=== PATIENT | female | born 1950 | race Caucasian/White ===

== ENCOUNTER 2017-12-19 22:11 | Emergency (ER) | payer OTHER, MEDICARE, SELFPAY ==
[2017-12-19 22:13] VITALS: BP 154/58; PULSE 75; RESP 16; TEMP 36.8; O2SAT 98; BMI 33.8
[2017-12-19 22:20] VITALS: BP 154/58; RESP 16; O2SAT 99
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
[2017-12-19] MEDS: HYDROcodone Bitartrate/Apap 5/325 Tablet PO (22:29)
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
[2017-12-19 23:58] VITALS: RESP 16
== END 2017-12-19 23:59 | disposition home or self-care (01) ==
PROVIDERS: Emergency Provider Emergency Medicine; Family Provider Family Medicine; PCP Family Medicine
DX: S20.211A Contusion of right front wall of thorax, initial encounter (principal); S90.31XA Contusion of right foot, initial encounter; M54.2 Cervicalgia; V59.59XA Passenger in pick-up truck or van injured in collision with other motor vehicles in traffic accident, initial encounter; Y93.9 Activity, unspecified; Y92.9 Unspecified place or not applicable; Y99.9 Unspecified external cause status; I10 Essential (primary) hypertension; K21.9 Gastro-esophageal reflux disease without esophagitis; E66.9 Obesity, unspecified; Z79.899 Other long term (current) drug therapy; Z85.028 Personal history of other malignant neoplasm of stomach
CPT/HCPCS: 71045; 73630; 99284

== ENCOUNTER → 2018-05-19 08:57 | Outpatient (CLI) | payer MEDICARE, SELFPAY ==
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
== END ==
PROVIDERS: Family Provider Family Medicine; PCP Family Medicine; Visit Provider Internal Medicine Hematology & Oncology
DX: C16.8 Malignant neoplasm of overlapping sites of stomach (principal)
CPT/HCPCS: 78815; A9552

== ENCOUNTER → 2019-04-03 15:03 | Outpatient (CLI) | payer MEDICARE, SELFPAY ==
--- NOTE | 2019-04-03 15:10 | RAD_ITS ---
STUDY: X-RAY - FACIAL BONES REASON FOR STUDY: Female, 68 years old. bone lesion, bump over right side of face, near TMJ, Hx CA TECHNIQUE: 3 view(s) of the facial bones. COMPARISON: None. FINDINGS: Normal bilateral frontozygomatic and zygomatic-temporal arches. Normal bilateral medial and inferior orbital baker. Normal bilateral orbits. Normal visualized nasal bones. Normal anterior nasal spine. The remaining visualized osseous structures are normal. There is hyperostosis frontalis internus. No destructive bony process. Normal visualized paranasal sinuses. RAD/Facial Bones min 3 Views IMPRESSION: No lytic or sclerotic bone lesions identified. Consider additional evaluation with cross-sectional imaging and/or bone scan, if clinically appropriate. Electronically Signed: Mike Pizarro MD ([place]) at 17:09 EST , Service support ,
== END ==
PROVIDERS: Family Provider Family Medicine; PCP Family Medicine; Referring Provider Family Medicine; Visit Provider Family Medicine
DX: M89.9 Disorder of bone, unspecified (principal)
CPT/HCPCS: 70150

== ENCOUNTER → 2019-09-22 13:48 | Outpatient (CLI) | payer MEDICARE, SELFPAY ==
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
== END ==
PROVIDERS: PCP Family Medicine; Referring Provider Internal Medicine Hematology & Oncology; Visit Provider Internal Medicine Hematology & Oncology
DX: C16.8 Malignant neoplasm of overlapping sites of stomach (principal)
CPT/HCPCS: 78815; A9552

== ENCOUNTER 2019-09-28 11:00 | Outpatient (RCR) | payer MEDICARE, SELFPAY ==
--- NOTE | 2019-07-20 17:21 | HP.PTEVAL ---
Patient's Visit Information Leonardo GARCIA is a 69 year old F referred to Physical Therapy by Toribio Fulton DO with a diagnosis of Malignant neoplasm of overlapping sites of stomach. Date of Evaluation: 07/20/19 Physical Therapist: MANUEL Villalobos - Visit Plan Frequency: 2x /Week Duration: 6 Weeks Plan: +++NO ESTIM++++ ( due to cancer). 2X/ week for 6 weeks for R hip and knee strengthening, functional activities, gait training, stairs, with HEP - Subjective Subjective: 4 years in Nov she was dx with gastric cancer and PET scan showed a place in her leg. Chemo she was on got rid of cancer. Last fall saw the tumer in R leg and got MRI in and did surgery Feb 26 with a steel irvin and had radiation and started a different form of chemo in Apr. She did start PT and she does not think she was pushed very hard. She did not feel that she had the improvement that she thought she should have and an order was sent over. They did not take the tumor out when they did the surgery. She is doing mat exercises at home 4-5X/ week. She reports that wants to be challenged. She was on a walker for about 2-3 weeks after the surgery and took a misstep and hurt herself and went back on the walker. It was middle of May that she left the waker and went back to the cane. Stairs: up with the good and down with the bad with a railing. Sit to stand: she needs her arms to push self up. She has always had a problem sleeping. - Pain R hip pain Pain Intensity (Out of 10): 2 - Objective Gait: Walks with a straight cane with decrease stride length and decreased flexion of the R LE. She walks very guarded. Stairs: up the good and down with the bad with 2 hand rails. Attempted to ascend the step with her R leg and she got her leg up on the next step with 2 hand rails with increase pain and difficulty. LE MMT: R hip flex 4-/5, R knee ext 4-/5, R knee flexion 4-/5, R hip abd 3+/5, R hip ext 2-/5. Pt is able to walk on heels and toes. Pt has good hip and knee ROM.... - Goals Goal 1:: I HEP Goal Time Frame: 4-6 Weeks Goal 2:: Increase Hip strength by 1/2 muscle grade (at time of eval: LE MMT: R hip flex 4-/5, R knee ext 4-/5, R knee flexion 4-/5, R hip abd 3+/5, R hip ext 2-/5. Pt is able to walk on heels and toes). Goal Time Frame: 4-6 Weeks Goal 3:: Be able to go up and down stairs recip with 1 hand rail and a cane with SBA Goal Time Frame: 4-6 Weeks Goal 4:: Sit to stand with 1 hand on the chair rail. Goal Time Frame: 4-6 Weeks - Rehabilitation Potential Rehabilitation Potential: Good - Anticipated Interventions Patient/Client Instruction: Educate patient on: Plan of Care For the Purpose of:: To decrease pain, To increase ROM, To improve nutrient delivery to tissue, To increase oxygenation perfusion, To improve muscle performance and motor function, To improve ability to perform ADL's, To improve performance and independence with ADL's, To improve gait and locomotor functions Therapeutic Exercise to Include: Strength training, Balance training, Postural training, Gait and locomotor training, Active ROM For the Purpose of:: To decrease pain, To improve nutrient delivery to tissue, To increase oxygenation perfusion, To improve muscle performance and motor function, To improve ability to perform ADL's, To increase tolerance to activity/condition/position, To improve performance and independence with ADL's, To improve gait and locomotor functions Thank you for the opportunity to evaluate your patient. For Medicare and Medicare HMO plans, please review the plan of care and approve it. It will need to be FAXED BACK to us at [phone] for Medicare purposes. For Medicare only, by signing this I certify the plan of care. Please let me know if there are questions or concerns regarding this plan of care. Physician Signature: Date:
--- NOTE | 2019-09-28 11:46 | HP.PTDCSUM ---
It has been my pleasure to treat Leonardo GARCIA referred by Dr. Toribio Fulton DO, with the diagnosis of Malignant neoplasm of overlapping sites of stomach for a total of 17 visit(s). Discharge Date: 09/28/19 Please see the following information for a summary of their discharge status. Subjective: Pt reports that the tumor in her leg has grown and they are looking at a spot on her face that they can not tell what it is. She feels that the pain has limited her progress. She thinks that she wants to hold off on PT..... She is hoping to speak with the Dr this week. Pt feels that her leg is a lot stronger than when she stated. R hip pain Pain Intensity (Out of 10): 2 right knee Pain Intensity (Out of 10): 4 % Improvement: 70 Objective/Function: Pt was able to stand up with no hands from a chair today. Stairs: up and down leading with her L leg ascending and descending with her L leg with 2 hand rails. Functionally pt has improved with strength. Gait: improved R knee flexion with gait. Still weight shifts more to the L with gait. LEFS Goal 1:: I HEP Goal Progress: Goal Met Goal 2:: Increase Hip strength by 1/2 muscle grade (at time of eval: LE MMT: R hip flex 4-/5, R knee ext 4-/5, R knee flexion 4-/5, R hip abd 3+/5, R hip ext 2-/5. Pt is able to walk on heels and toes). Goal Progress: Goal Met Goal 3:: Be able to go up and down stairs recip with 1 hand rail and a cane with SBA Goal Progress: Not Progressing Goal 4:: Sit to stand with 1 hand on the chair rail. Goal Progress: Goal Met Plan: DC PT to HEp ideas such as ride Nu-step at , Kitchen sink exercises, side stepping etc as she waits the new poc with her tumor growing. Discharge Comments: DC PT to HEP If there are questions or concerns regarding this patient's physical therapy, please feel free to call me at [phone]. Thank you for the referral of this patient. Sincerely, Micki Bearden, MPT
== END 2019-09-28 19:00 | disposition home or self-care (01) ==
LOC: PT 11:00
PROVIDERS: PCP Family Medicine; Referring Provider Internal Medicine Hematology & Oncology; Visit Provider Internal Medicine Hematology & Oncology
DX: C16.8 Malignant neoplasm of overlapping sites of stomach (principal); M84.551D Pathological fracture in neoplastic disease, right femur, subsequent encounter for fracture with routine healing; R26.9 Unspecified abnormalities of gait and mobility
CPT/HCPCS: 97110; 97162; 97530

== ENCOUNTER → 2019-10-08 09:12 | Outpatient (CLI) | payer MEDICARE, SELFPAY ==
--- NOTE | 2019-10-08 | ASPOS_PTH ---
PATIENT: Leonardo GARCIA LOC: [facility] U#:[id number] AGE/SX: 74/F ROOM: RE10/08/[address]: Dr. Dawit Chiang MD : 1950 BED: DIS: SPEC #: [id number] RECD: 10/08/19 10:30 STATUS: JAZ TALAVERA #: [id number] CIRILO: 10/08/19 00:[address]: Dawit Chaing DEPT: CYTOLOGY RECD BY: Raya Bermeo ENTERED: 10/08/19 11:31 SP TYPE: ASP HERE OTHR DR: Dr. Almita Maria MD Tissues: Face, NOS Procedures: Surgery Specimen Level IV Cytology Other Fine Needle Asp on Site HEADER OPERATION: Fine needle aspiration right facial/parotid area PRE-OP DIAGNOSIS: Right facial mass TISSUE SUBMITTED: FNA right facial/parotid area DIAGNOSIS CYTOLOGY Fine needle aspiration, right facial mass (smears and cell block): Positive for malignant cells consistent with metastatic non-small cell carcinoma. See comment. AM:letha 10/12/19 COMMENT The findings are consistent with a metastatic gastric carcinoma. Clinical correlation is suggested. The specimen is evaluated at the time of FNA by Dr. Shafer. Immediate Evaluation = Positive for malignant cells consistent with non-small cell carcinoma. Immunohistochemistry ([id number]) supports the above diagnosis. Case has been reviewed in consultation with Dr. Borden who concurs with the above diagnosis. IDC:SJ CYTOLOGY STUDY Slides are reviewed. CYTOLOGY GROSS Received is 0.2 ml of reddish-feliciano fluid labeled with the patient's name, and designated right facial/parotid area. Two imprints are made from the submitted fluid and the rest is added to CytoLyt for cell block preparation. Submitted for cytology study. / AM:letha 10/08/19 TC:0 CPT: 36460, 86744, 60503, 33214
--- NOTE | 2019-10-08 | IMM_PTH ---
PATIENT: Leonardo GARCIA LOC: [facility] U#:[id number] AGE/SX: 74/F ROOM: RE10/08/[address]: Dr. Dawit Chiang MD : 1950 BED: DIS: SPEC #: [id number] RECD: 10/12/19 11:51 STATUS: JAZ REPratik #: [id number] CIRILO: 10/08/19 00:[address]: Dawit Chiang DEPT: IMMUNOHISTOCHEMISTRY RECD BY: Teresa Castro ENTERED: 10/12/19 11:53 SP TYPE: IMMUNO OTHR DR: Dr. Almita Maria MD Tissues: Face, NOS Procedures: Mammoglobin (initial) CK20 (add) CK5-6 (add) CK7 (add) CK8 (add) ANDREWS-2 (add) HER2 IVÁN (add) P53 (add) Pankeratin (add) GATA3 (add) CDX2 (add) S-100 (add) PHYSICIAN & [address] [address] SPECIMEN INFORMATION: Tissue Source: Right facial mass, fine needle aspiration Clinical Info: Right facial mass Specimen Number: [id number] CPT code: 12114, 02310 x11 METHODOLOGY: Deparaffinized sections of prefer/formalin-fixed tissue or PAP/DQ stained slides are incubated with monoclonal/polyclonal antibodies/oligonucleotide probes. Localization is made via biotin free immunoperoxidase method. Appropriate controls are performed and reacted as expected. Results on target cell population are indicated in the following table: RESULTS: ANTIBODY / CLONE RESULT Mammaglobin (31A5) negative GATA3 (L50-823) negative AE1-3 (AE1/AE3/PCK26) positive CK7 (OV-TL12/30) positive CK8 (21pzyrT72) positive CK20 (KS20.8) negative ANDREWS-2 (SP21) positive, focal CDX2 (GMW9245L) positive S-100 (4C4.9) negative CK5-6 (D5 & 1684) positive, focal P53 (DO-7) positive, 86% Her-2neu (CB11) positive These tests were developed and their performance characteristics determined by [facility]. They may not have been cleared or approved by the U.S. Food and Drug Administration. The FDA has determined that such clearance or approval is not necessary. The above immunohistochemical/dualISH markers are ordered and reviewed by the Pathologist. INTERPRETATION: Right facial mass, fine needle aspiration: Metastatic non-small cell carcinoma. See comment. AM:letha 10/13/19 Comment: Metastatic gastric carcinoma is favored. Case has been reviewed in consultation with Dr. Borden who concurs with the above diagnosis. IDC:SJ
== END ==
PROVIDERS: PCP Family Medicine; Referring Provider Otolaryngology; Visit Provider Otolaryngology
DX: R22.0 Localized swelling, mass and lump, head (principal)
CPT/HCPCS: 10021; 88161; 88305; 88341; 88342

== ENCOUNTER 2020-01-27 12:41 | Emergency (ER) | payer MEDICARE, SELFPAY ==
[2020-01-27] VITALS (8 sets, daily range): BP systolic 93–125; BP diastolic 51–92; PULSE 64–77; RESP 15–17; TEMP 36.6–38.2; O2SAT 94–98; BMI 31.5
--- NOTE | 2020-01-27 13:13 | EKG12_ITS ---
Test Reason : Blood Pressure : / mmHG Vent. Rate : 063 BPM Atrial Rate : 063 BPM P-R Int : 116 ms QRS Dur : 084 ms QT Int : 386 ms P-R-T Axes : 050 010 031 degrees QTc Int : 395 ms Normal sinus rhythm Nonspecific ST abnormality Abnormal ECG Confirmed by ELIANA SHEETS, ARTEM ([id number]), scientific publications editor DERRELL LEVI ([id number]) on 02/01/2020 12:32:44 PM Referred By: LOUIS Confirmed By:ARTEM MONROY MD
--- NOTE | 2020-01-27 13:25 | ED.DCSUM_ITS ---
- ER Visit Summary Date of Service: 01/27/20 Chief Complaint: Fever History of Present Illness: The patient is a 69 F history of gastric CA with metastases. Status post recent sulfa antibiotic for an abscess on external genitalia. Patient is currently under immunotherapy for gastric cancer. Today in the office he noticed fever of 102 with a dry cough. She denies any dysuria. She denies any nausea, vomiting or diarrhea. She denies any shortness of breath. Physical Examination: Older female no acute distress current temperature is 100.8. H EENT exam unremarkable moist with members. Neck nontender no lymphadenopathy. Lungs coarse breath sounds in the bases. Heart regular rhythm no murmur rate about 65. Abdomen soft nontender normal bowel sounds no peritoneal signs. Moving all 4 extremities. Neurovascular intact. She has chronic edema in her right leg from prior surgery that is not new or different. She has been worked up and has been negative for DVT in the past. Back nontender. She is a right chest wall MediPort it is nontender, nonswollen and no redness. Neurologically she is awake and alert with no focal motor deficits. Test Results: CBC shows a white count of 1.6 hemoglobin 9.9 absolute neutrophils of 900. Consistent with neutropenia. Her chemistries are unremarkable normal gap and creatinine. Liver enzymes unremarkable. UA normal. Lactic acid normal at 0.7 blood cultures pending. Covid has been done we will waiting on the result. Chest x-ray shows chronic changes there is an elevated left hemidiaphragm and atelectasis in the left lung base versus a mass. I discussed with the radiologist who feels this is all chronic and not an acute infiltrate nor pneumonia. Emergency Department Course and Treatment: Patient with gastric cancer and mets currently going undergoing immunotherapy presents with a fever. I discussed all test results with patient and her . I called and spoke to her oncologist Dr. Toribio Fulton. He wanted me to start the patient on IV Levaquin x1 dose here then Levaquin at home for 4 more days and he would follow- up tomorrow. Treatment Plan: 500 mg Levaquin daily. Follow-up with her oncologist tomorrow. Return if feeling worse. Cultures pending. Disposition: dc Impression: Acute neutropenic fever History of gastric cancer with mets on immunotherapy Rule out Covid This note was generated with DNAnexusation software. It may contain incorrect words, spelling, and punctuation that were not noted in review of the chart prior to signing ED Disposition - Plan for ED Patient: Referrals: Almita Maria MD [Primary Care Provider] -
--- NOTE | 2020-01-27 13:45 | RAD_ITS ---
STUDY: X-RAY CHEST REASON FOR EXAM: Female, 69 years old. Fever, chemo TECHNIQUE: Single AP portable view of the chest. COMPARISON: Comparison is made with prior study dated 12/19/2017. FINDINGS: A right-sided Port-A-Cath is seen with the tip at the junction of the superior vena cava and right atrium. EKG electrodes are seen. There is elevation of the left hemidiaphragm. Since prior examination, the previously seen nodular density has increased in size. This presently measures 5 cm x 3.4 cm. A central lucency is seen suggestive of possible cavitation. Blunting of the left costophrenic angle. Normal size heart. Normal mediastinum and del. Normal visualized pulmonary arteries. There is atherosclerotic calcification of the aortic arch with tortuosity. There are diffuse degenerative changes of the visualized thoracic spine. There is degenerative osteoarthritis of the bilateral shoulders. There is no demonstrated abnormality of the visualized soft tissue structures of the upper abdomen. RAD/Chest 1 View (Portable) IMPRESSION: Stable elevation of the left hemidiaphragm with progressive nodular mass at the left lung base. Electronically Signed: Rajat Moore, at 14:17 EDT , Service support ,
[2020-01-27] MEDS: 0.9% Normal Saline 1,000 ML 999 ML IV (14:24)
[2020-01-27 14:33] LABS: Absolute Lymphocyte Count 0.43 X10^3/uL (0.83-4.51); Absolute Neutrophil Count 0.9 X10^3/uL (2.0-7.7); Basophil# 0.01 X10^3/uL; Basophil% 0.6 % (0-1); Hematocrit 30.7 % (37-47); Hemoglobin 9.9 g/dL (12.0-15.0); Lymphocyte # 0.43 X10^3/ul (4.0); Lymphocyte % 27.7 % (19-41); Mean Corp Hgb Conc 32.2 g/dL (32-36); Mean Corpuscular Hgb 33.8 pg (27.0-32.0); Mean Corpuscular Volume 104.8 fL (81-99); Mean Platelet Vol. 9.6 fl (6.2-12.0); Monocyte# 0.21 X10^3/uL; Monocyte% 13.5 % (0-10); NRBC Flagged by Analyzer 0 % (0-5); Neutrophil # 0.89 X10^3/uL (2.7-7.7); Neutrophil % 57.6 % (47-70); POSITIVE DIFFERENTIAL YES; Platelet Count 134 K/mm3 (150-450); RBC Distribution Width CV 12.7 % (11.6-14.6); RBC Distribution Width SD 49.3 fl (35.1-43.9); Red Blood Count 2.93 M/mm3 (4.2-5.4); White Blood Count 1.6 K/mm3 (4.4-11.0)
[2020-01-27 14:41] LABS: International Normalized Ratio 1.4; Prothrombin Time (Protime)PT. 16.4 SECONDS (11.7-14.9)
[2020-01-27 14:42] LABS: Partial Thromboplast Time 74.8 Seconds (24.1-36.2)
[2020-01-27 14:43] LABS: Differential Indicated SCAN CRITERIA MET
[2020-01-27 14:51] LABS: ALB/GLOB Ratio 0.8 RATIO (0.9-2.4); AST(SGOT) 42 U/L (15-37); Alanine Aminotransfer ALT/SGPT 25 U/L (13-56); Albumin, Serum 2.6 g/dL (3.2-5.0); Alkaline Phosphatase 82 U/L (45-117); Anion Gap 5 (5-15); BUN 18 mg/dL (7-18); BUN/Creat Ratio 16.5 RATIO (10-20); Calcium,Total 8.1 mg/dL (8.5-10.1); Chloride 105 mmol/L (98-107); Creatinine, Serum 1.09 mg/dL (0.55-1.02); EST Glomerular Filtration Rate 53 mL/min (>60); Est Glom Filt Rate - Afr Amer 64 mL/min (>60); Estimated Creatinine Clearance 37.98 ml/min; Globulin 3.4 g/dL (2.2-4.2); Glucose 81 mg/dL (74-106); Lactic Acid 0.7 mmol/L (0.4-1.9); Sodium Level 134 mmol/L (136-145)
[2020-01-27 15:11] LABS: Bacteria 0 SEEN /hpf (None Seen); Mucous, Urine 0 SEEN /hpf (<or=2+); Red Blood Cells-Urine 0 SEEN /hpf (0-5); Squamous Epithelial Cells - UA 0 SEEN /hpf (5-10)
[2020-01-27] MEDS: oxyCODONE 5 MG Tablet PO (15:18)
[2020-01-27 15:29] LABS: Macrocytosis 1+; Platelet Estimate SLT DEC (ADEQ)
[2020-01-27 15:48] LABS: Color, Urine Yellow (Yellow); Glucose, Dipstick Normal (Normal); Ketone-Dipstick Negative (Negative); Leukocyte Esterase-Dipstick 25 /ul (Negative); Nitrite-Dipstick Negative (Negative); Occult Blood-Urine Negative /ul (Negative); Protein-Dipstick 15 mg/dl (Negative); Urine Bilirubin Dipstick Negative (Negative); Urine Clarity Clear (Clear); Urine Urobilinogen Normal (Normal)
[2020-01-27 15:57] LABS: White Blood Cells 0-5 SEEN /hpf (0-5)
--- NOTE | 2020-01-27 16:25 | ED.DEP ---
ED Disposition - Plan for ED Patient: Disposition: Home or Assisted Living Prescriptions: levoFLOXacin tablet [Levaquin tablet] 500 mg PO DAILY 4 Days #4 tab Prescription Printed Referrals: Toribio Fulton DO [STAFF PHYSICIAN] - 1 Day Additional Instructions: Levaquin 1 pill a day for 4 more days starting tomorrow. Call and follow-up with Dr. Toribio Fulton's office tomorrow. Return if feeling worse.
[2020-01-27] MEDS: levoFLOXacin IV 500 MG/100 ML BAG 100 MG IV (17:03)
--- NOTE | 2020-01-27 17:07 | ED.RN ---
PER DR. LUTHER SEPSIS SCREEN COMPLETED.
[2020-01-27] MEDS: 0.9% Saline Lock 10 ML Syringe IV (18:24)
[2020-01-28 14:20] LABS: Pathologist Review Reviewed
== END 2020-01-27 18:38 | disposition home or self-care (01) ==
PROVIDERS: Emergency Provider Emergency Medicine; PCP Family Medicine
DX: D70.9 Neutropenia, unspecified (principal); R50.81 Fever presenting with conditions classified elsewhere; C16.9 Malignant neoplasm of stomach, unspecified; C79.9 Secondary malignant neoplasm of unspecified site; Z79.899 Other long term (current) drug therapy; Z85.028 Personal history of other malignant neoplasm of stomach
CPT/HCPCS: 36591; 71045; 80053; 81001; 83605; 85025; 85610; 85730; 87040; 87086; 87088; 87635; 93005; 96361; 96365; 96375; 99284; J7030; J7050; A4216; U0002

== ENCOUNTER → 2020-03-29 16:23 | Outpatient (CLI) | payer MEDICARE, SELFPAY ==
[2020-01-27 12:41] VITALS: BMI 31.5
--- NOTE | 2020-03-29 15:00 | PET_ITS ---
EXAMINATION: FDG PET/CT INDICATIONS: A 69-year-old female with reported history of gastric carcinoma presenting for restaging examination. COMPARISON EXAMINATION: FDG PET study dated 05/19/2018 INDEX LESION SIZE SUV INTERPRETATION NEW: Left lower hemithorax pulmonary parenchyma-left lower lobe 9.1 x 13.4-cm (frame 184) 19.7 Fulfills quantitative criteria for viable neoplasm NEW: mediastinal structures, right supraclavicular region, bilateral thoracic perihilum 41.8-mm (largest) (frame 188) 22.8 (max) Fulfills quantitative criteria for viable neoplasm NEW: right hemithorax pleural interface, bilateral hemithorax pulmonary parenchyma 4.9 (max) Fulfills quantitative criteria for viable neoplasm NEW: abdominal retroperitoneum, bilateral hemipelvis and right inguinal regions 39.4-mm (largest) (frame 80) 6.5 (max) Fulfills quantitative criteria for viable neoplasm NEW: axial skeletal structures, periosseous soft tissue hypermetabolic foci 8.1-cm (largest) (frame 74) 9.8 (max) Fulfills quantitative criteria for viable neoplasm TECHNIQUE: Following the intravenous administration of 12.9 mCi of F-18 deoxyglucose via the left antecubital fossa, multiplanar image acquisitions of the neck, chest, abdomen and pelvis to level of mid thigh, obtained at one hour post radiopharmaceutical administration contemporaneously interpreted with the current CT of the neck, chest, abdomen and pelvis to level of mid thigh, dated 03/29/2020 via coregistration and previous FDG PET study dated 05/19/2018 reveal: SERUM GLUCOSE LEVEL: 88 mg/dl. HEIGHT: 62 inches. WEIGHT: 167 lbs. FINDINGS: 1. Newly identified increased glucose metabolism is manifest in the left mid-lower lung field-left lower lobe corresponding to consolidation-mass on review of CT of the chest dated 03/29/2020. The calculated maximal standard uptake value is 19.7. The maximal axial diameter of the corresponding metabolic, morphologic abnormality on review of CT of the chest dated 03/29/2020 is 9.1-cm (transverse) x 13.4-cm (AP). 2. Increased FDG distribution is visualized in the superior-subcarinal mediastinum and bilateral thoracic perihilum, right supraclavicular region rendering a calculated maximal standard uptake value of 22.8. The maximal axial diameter of the largest individual metabolic, morphologic abnormality on review of CT of the chest dated 03/29/2020 is 41.8-mm (AP). 3. Enhanced radiopharmaceutical uptake is multifocally apparent in the right hemithorax at the upper-lower pleural interface, bilateral lung zones-pulmonary parenchyma generating a calculated maximal standard uptake value of 4.9. 4. Multifocal increased glucose concentration is observed in the mid to lower abdominal retroperitoneum and bilateral hemipelvis, the right inguinal lymph node distributions. The calculated maximal standard uptake value is 6.5. The maximal axial diameter of the largest individual metabolic, morphologic abnormality on review of CT of the chest dated 03/29/2020 is 39.4-mm (AP). 5. Multifocal increased fluorine labeled GLUCOSE distribution is manifest in the subcutaneous-soft tissues, axial skeletal structures to include several thoracic and lumbar vertebrae, bilateral hemipelvis. The calculated maximal standard uptake value is 9.8. The maximal axial diameter of the largest soft tissue metabolic-morphologic abnormality on review of CT of the pelvis dated 03/29/2020 is 8.1-cm (transverse). 6. Normal physiologic distribution of the radiopharmaceutical is apparent in the hepatic (2.7) and splenic parenchyma, both renal units, bladder and visualized intestinal tract. Pertinent CT findings are as follows: CHEST: Shane-cath placement is noted. There is atherosclerotic calcification defined in the thoracic aorta without evidence of dilatation-aneurysm formation. A consolidative mass involving the left mid-lower lung demonstrates quantitatively significant increased FDG uptake. Parenchymal densities manifest in the right and left hemithorax demonstrate enhanced FDG uptake. ABDOMEN AND PELVIS: Left subcentimeter inguinal soft tissue densities are non-glucose avid. Extensive soft tissue swelling with apparent anasarca is defined in the visualized right lower extremity. Orthopedic hardware placement is noted in the right proximal femur. Calcifications are manifest in the bilateral lower hemipelvis in proximity to the adnexal regions without evidence of increased tracer uptake. SKELETAL: Degenerative changes are noted in the cervical, thoracic and lumbar spine. PET/PET/CT Tumor Base -Thigh Subs IMPRESSION: 1. ABNORMAL EXAMINATION INDICATIVE OF MALIGNANT VIABLE NEOPLASM. 2. Increased FDG concentration newly identified in the left lower lung-left lower lobe fulfills quantitative criteria for viable neoplasm. 3. Enhanced tracer uptake noted in the right supraclavicular region, mediastinal structures and bilateral thoracic perihilum fulfills quantitative criteria for viable metastatic disease. 4. Facilitated fluorine labeled glucose uptake identified in the right and left hemithorax pulmonary parenchyma, as well as right hemithorax at the pleural interface fulfill quantitative criteria for malignant transformation. 5. The abdominal retroperitoneal and retrocrural, bilateral hemipelvic and right inguinal hypermetabolic soft tissue densities fulfill quantitative criteria for viable metastatic involvement. 6. Skeletal and extraosseous soft tissue hypermetabolic foci fulfill quantitative criteria for viable neoplasia. (Sagar et al, Clinical Nuclear Medicine, 29:161, 2004). Electronic Signature Favio Carrasco D.O. Accurate Quantification of SUVs for this report are calculated using the exclusive i-nexus? Technology.??Exclusive [place].S. Patent Accuquan? Technology (U.S. Patent No. [phone] [phone]). Electronically Signed: Favio Carrasco DO at 10:14 EST Tel , Service support ,
== END ==
PROVIDERS: PCP Family Medicine; Referring Provider Internal Medicine Hematology & Oncology; Visit Provider Internal Medicine Hematology & Oncology
DX: C16.8 Malignant neoplasm of overlapping sites of stomach (principal)
CPT/HCPCS: 78815; A9552

== ENCOUNTER 2020-04-02 23:02 | Inpatient (IN) | payer MEDICARE, SELFPAY ==
[2020-01-27 12:41] VITALS: BMI 31.5
[2020-04-02 23:03] VITALS: BP 143/80; PULSE 75; RESP 26; TEMP 36.4; O2SAT 96; BMI 30.6
--- NOTE | 2020-04-02 23:22 | EKG12_ITS ---
Test Reason : SYNCOPE Blood Pressure : / mmHG Vent. Rate : 074 BPM Atrial Rate : 074 BPM P-R Int : 124 ms QRS Dur : 086 ms QT Int : 400 ms P-R-T Axes : -14 -02 107 degrees QTc Int : 444 ms Normal sinus rhythm Moderate voltage criteria for LVH, may be normal variant ST & T wave abnormality, consider lateral ischemia Abnormal ECG Confirmed by BRINA SHEETS, KEVIN ([id number]), school photograph editor DERRELL LEVI ([id number]) on 04/07/2020 10:13:46 AM Referred By: MAREN Confirmed By:FERNIE GONSALVES MD
--- NOTE | 2020-04-02 23:23 | CT_ITS ---
STUDY: CTA CHEST REASON FOR EXAM: Female, 69 years old patient with recent syncopal episode lasting 7-8 mins. Patient has chronic shortness of breath which has worsened today. Patient on chemotherapy for gastric and lung cancer. RADIATION DOSAGE (If Supplied By Facility): CTDIvol = ( 4.10 ) mGy, DLP = ( 166.90 ) mGycm TECHNIQUE: The examination was performed with the intravenous administration of 100 mL of Isovue-370. Post-processing of the angiographic images was performed, with multiplanar reformation and 3D reconstruction. Individualized dose optimization techniques were used for this CT. COMPARISON: PET/CT dated 03/29/2020. FINDINGS: Cardiac monitoring leads are present. Normal enhancement of the main pulmonary artery and right and left pulmonary arteries. There is limited enhancement of the left-sided peripheral pulmonary arteries. There is no demonstrated pulmonary embolism. There is prominence of the main pulmonary arteries without peripheral pulmonary vascular congestion. There is atherosclerotic calcification of the aortic arch with tortuosity. There is no demonstrated aortic dissection. Normal heart and pericardium. There is extensive mediastinal lymphadenopathy in the right paratracheal, pretracheal, precarinal, subcarinal, aorticopulmonary window and prevascular regions. There is probable left-sided and right-sided hilar lymphadenopathy. Left hilum is somewhat obscured by the extensive airspace disease and/or mass. The trachea and right sided mainstem bronchus and bronchioles appear to be patent. Although left main stem bronchus is patent, the bronchioles quickly taper and are occluded by neoplasm. There is mild elevation of left hemidiaphragm probably secondary to postobstructive atelectasis. There is dense left lower lobe airspace disease and/or mass similar to previous study. There are numerous pulmonary nodules scattered throughout the right lung of varying sizes. The largest nodule measures up to 1.9 cm in size. There is a small right-sided pleural effusion. Normal chest wall structures. Normal osseous structures. Normal visualized upper abdomen. CT/CTA Chest W/WO Contrast IMPRESSION: 1. No CTA demonstrated large or central pulmonary embolism or arterial dissection. 2. Postobstructive atelectasis with larger left lower lobe pulmonary mass and lingular mass consistent with known neoplasm. 3. Numerous right-sided pulmonary nodules probably representing additional metastasis. 4. Mediastinal and hilar lymphadenopathy. Electronically Signed: Sulema Godoy MD at 1:31 EST , Service support ,
--- NOTE | 2020-04-02 23:24 | ED.DCSUM_ITS ---
History of Present Illness Chief Complaint: Syncope Narrative: This patient is a 69-year-old female who presents with syncope. She was walking up the steps. She became dizzy and lightheaded. She remembers falling on the steps. Per EMS she had a syncopal episode and was unresponsive for about 7 to 8 minutes per bystander. She does not believe she injured anything. She denies any pain at all at this time. She denies recent medical illness such as fever cough vomiting or diarrhea. She states she had been in her baseline health until today. She has chronic shortness of breath but did have some worsening dyspnea on exertion today. She notes that she has some chronic right leg edema related to a prior fracture with ORIF. However she has had greatly increased swelling over the last couple of months. No extremity pain. No history of DVT or pulmonary embolism. She is not anticoagulated. She is undergoing chemotherapy and her last treatment was 2 days ago. Past Medical History - Allergies and Home Meds Allergies/Adverse Reactions: Allergies No Known Allergies Allergy (Verified 01/27/20 12:46) Primary Care Physician: Almita Maria MD [Primary Care Provider] - Past Medical History: - - Hypertension, metastatic gastric cancer Surgical History: - - Port Smoking Status: Never smoker Review of Systems All systems negative except as indicated General: Denies: Fever Eyes: Denies: Visual changes - bilaterally ENT: Denies: Bilateral ear pain Cardiovascular: Reports: - - Syncope. Denies: Chest pain Respiratory: Reports: Dyspnea. Denies: Cough Gastrointestinal: Denies: Abdominal pain, Nausea, Vomiting Musculoskeletal: Reports: Swelling. Denies: Extremity Pain Skin: Denies: Rash Neurological: Denies: Headache Hematologic: Denies: Easy bruising Allergy: Denies: Uticaria Physical Exam Vital Signs/Narrative: Vital Signs Temp Pulse Resp BP Pulse Ox 04/02/20 23:03 97.5 F L 75 26 H 143/80 H 96 Inital Vital Signs reviewed: Yes General: Well nourished Head: Normocephalic Eyes: EOMI ENT: Moist mucous membranes Neck: Supple Cardiovascular: Regular rate, Regular rhythm Respiratory: - - Tachypnea, decreased breath sounds at the left base, scattered wheezing Abdomen: Soft, Nontender, Nondistended Extremities: Nontender, - - Patient has trace edema of the left lower extremity, patient has 4+ edema of the right lower extremity, she has a palpable dorsalis pedis pulse, she has brisk capillary refill Skin: Normal color. Negative for: Diaphoresis Neurological: Alert Psychological: Normal affect Diagnostic/Tx/Re-eval Impressions Chest CTA 04/02/20 23:23 IMPRESSION: 1. No CTA demonstrated large or central pulmonary embolism or arterial dissection. 2. Postobstructive atelectasis with larger left lower lobe pulmonary mass and lingular mass consistent with known neoplasm. 3. Numerous right-sided pulmonary nodules probably representing additional metastasis. 4. Mediastinal and hilar lymphadenopathy. Electronically Signed: Sulema Godoy MD at 1:31 EST , Service support , 04/02/20 23:23 CTA Chest W/WO Contrast [CT] Stat 04/02/20 23:30 Mucosa - Nose SARS-CoV-2 Antigen (Rapid) - Final Laboratory Results 04/02/20 04/02/20 04/02/20 23:20 23:20 23:20 WBC 11.8 H RBC 4.21 Hgb 13.3 Hct 40.1 MCV 95.2 MCH 31.6 MCHC 33.2 RDW Std Deviation 51.4 H RDW Coeff of Farnaz 14.6 Plt Count 110 L MPV 9.8 Neut % (Auto) Not Reportable Absolute Neuts (auto) 11.1 H Absolute Lymphs (auto) 0.24 L Total Counted 100 Neutrophils % (Manual) 89 H Band Neutrophils % 5 Lymphocytes % (Manual) 2 L Monocytes % (Manual) 3 Myelocytes % 1 H Diff Path Review May foll Platelet Estimate ADEQUATE RBC Morphology NORM C+C Sodium 133 L Potassium 4.8 Chloride 100 Carbon Dioxide 22.0 Anion Gap 11 BUN 27 H Creatinine 1.01 Estim Creat Clear Calc 42.87 Est GFR (MDRD) Af Amer 70 Est GFR (MDRD) Non-Af 58 L BUN/Creatinine Ratio 26.7 H Glucose 164 H Lactic Acid Calcium 7.1 L Total Bilirubin 0.30 AST 52 H ALT 33 Alkaline Phosphatase 129 H Troponin I 0.051 H B-Natriuretic Peptide 226.3 H Total Protein 5.9 L Albumin 2.4 L Globulin 3.5 Albumin/Globulin Ratio 0.7 L 04/02/20 23:30 WBC RBC Hgb Hct MCV MCH MCHC RDW Std Deviation RDW Coeff of Farnaz Plt Count MPV Neut % (Auto) Absolute Neuts (auto) Absolute Lymphs (auto) Total Counted Neutrophils % (Manual) Band Neutrophils % Lymphocytes % (Manual) Monocytes % (Manual) Myelocytes % Diff Path Review Platelet Estimate RBC Morphology Sodium Potassium Chloride Carbon Dioxide Anion Gap BUN Creatinine Estim Creat Clear Calc Est GFR (MDRD) Af Amer Est GFR (MDRD) Non-Af BUN/Creatinine Ratio Glucose Lactic Acid 3.9 H* Calcium Total Bilirubin AST ALT Alkaline Phosphatase Troponin I B-Natriuretic Peptide Total Protein Albumin Globulin Albumin/Globulin Ratio - Medical Decision Making EKG shows sinus rhythm with T wave inversions in the lateral leads. Given the high clinical suspicion for pulmonary embolism CTA of the chest and laboratory studies were obtained. CTA of the chest shows no pulmonary embolism or arterial dissection. It does show postobstructive atelectasis with a left lower lung mass and multiple nodules on the right as well. Laboratory studies are notable for indeterminate troponin at 0.05. Lactic acid is elevated at 3.9. Patient is not febrile or tachycardic. Her white count is only 11.8. There are multiple etiologies for lactic acidosis had not believe this is related to sepsis but we will obtain urinalysis and cultures. Patient will be discussed with hospitalist and admitted for further evaluation and management. ED Disposition - Plan for ED Patient: Disposition: Acute Care Hospital [facility] Diagnosis: Syncope, Elevated troponin, Malignant neoplasm of stomach metastatic to lung Referrals: Almita Maria MD [Primary Care Provider] -
[2020-04-02 23:39] VITALS: PULSE 74; RESP 24
[2020-04-02] MEDS: Ipratropium/Albuterol Sulfate 3 ML AMPUL.NEB INHALATION (23:39)
--- NOTE | 2020-04-02 23:44 | ED.RN ---
RIGHT UPPER CHEST POWER PORT ACCESSED BY Kvng TITUS RN WITH GOOD BLOOD RETURN NOTED. LABS OBTAINED AT THIS TIME
[2020-04-02 23:51] LABS: ALB/GLOB Ratio 0.7 RATIO (0.9-2.4); AST(SGOT) 52 U/L (15-37); Alanine Aminotransfer ALT/SGPT 33 U/L (13-56); Albumin, Serum 2.4 g/dL (3.2-5.0); Alkaline Phosphatase 129 U/L (45-117); Anion Gap 11 (5-15); BUN 27 mg/dL (7-18); BUN/Creat Ratio 26.7 RATIO (10-20); Calcium,Total 7.1 mg/dL (8.5-10.1); Chloride 100 mmol/L (98-107); Creatinine, Serum 1.01 mg/dL (0.55-1.02); EST Glomerular Filtration Rate 58 mL/min (>60); Est Glom Filt Rate - Afr Amer 70 mL/min (>60); Estimated Creatinine Clearance 42.87 ml/min; Globulin 3.5 g/dL (2.2-4.2); Glucose 164 mg/dL (74-106); Potassium 4.8 mmol/L (3.5-5.1); Protein, Total 5.9 g/dL (6.4-8.2); Sodium Level 133 mmol/L (136-145)
[2020-04-02 23:59] LABS: Hematocrit 40.1 % (37-47); Hemoglobin 13.3 g/dL (12.0-15.0); Mean Corp Hgb Conc 33.2 g/dL (32-36); Mean Corpuscular Hgb 31.6 pg (27.0-32.0); Mean Corpuscular Volume 95.2 fL (81-99); Mean Platelet Vol. 9.8 fl (6.2-12.0); POSITIVE COUNT YES; POSITIVE DIFFERENTIAL YES; POSITIVE MORPHOLOGY YES; Platelet Count 110 K/mm3 (150-450); RBC Distribution Width CV 14.6 % (11.6-14.6); RBC Distribution Width SD 51.4 fl (35.1-43.9); Red Blood Count 4.21 M/mm3 (4.2-5.4); White Blood Count 11.8 K/mm3 (4.4-11.0)
[2020-04-03] VITALS (13 sets, daily range): BP systolic 100–133; BP diastolic 54–80; PULSE 57–92; RESP 16–28; TEMP 36.3–37.1; O2SAT 94–98; BMI 30.1; BMI 30.2
[2020-04-03 00:01] LABS: Differential Indicated MANUAL DIFF
[2020-04-03 00:10] LABS: Lactic Acid 3.9 mmol/L (0.4-1.9)
[2020-04-03 00:28] LABS: Absolute Lymphocyte Count 0.24 X10^3/uL (0.83-4.51); Lymphocyte 2 % (19-41); Lymphocyte # 0.24 X10^3/ul (4.0); Monocyte 3 % (0-10); Myelocyte 1 (0-0); Neutrophil # 11.09 X10^3/uL (2.7-7.7); Neutrophil-Band 5 % (0-5); Neutrophil-Segmented 89 % (47-70); Platelet Estimate ADEQUATE (ADEQ); Red Cell Morphology NORM C+C NORMAL (NORM C&C); Total Cells Counted 100 (MANUAL DIFF)
[2020-04-03 00:29] LABS: Absolute Neutrophil Count 11.1 X10^3/uL (2.0-7.7)
--- NOTE | 2020-04-03 00:58 | ED.RN ---
CONTACT: BERNY GARCIA, (SPOUSE)...CELL# [phone]...HOME# [phone]
[2020-04-03 01:08] LABS: BNP,B-Type NATRIURETIC PEPTIDE 226.3 pg/mL (0-100)
--- NOTE | 2020-04-03 02:11 | HP.PCM_ITS ---
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 The patient is a 69 year old F with past medical history as mentioned above presented to the emergency room because of syncope. Patient stated that she was walking upstairs, felt dizzy and lightheaded and she collapsed. She thinks that she lost her consciousness but she is not sure for how long. EMS reported that patient was unresponsive for about 7 to 8 minutes although the patient herself thinks that it was for short period of time. She denied any significant trauma or body injury. She denied cough or sputum production. She denied fever or chills. She reported chronic mild shortness of breath. She had history of metastatic gastric cancer and she is currently on immunotherapy, received her last session of immunotherapy 9 days ago and she follows up with Dr. Toribio Fulton. She had a history of hypertension and she has been on atenolol. She will history of osteoarthritis and she underwent right total knee replacement in 2013. In the emergency department, she was afebrile, blood pressure and heart rate are stable, she was tachypneic, pulse ox was 96% on room air. Routine blood work was remarkable for minimal leukocytosis, platelet count of 110,000. LFT was unremarkable. Lactic acid was 3.9. EKG revealed normal sinus rhythm without evidence of acute ischemic changes. Troponin was 0.51. BNP was 226. CTA chest done and showed no PE or dissection, revealed left lower lobe lung mass which is chronic secondary to metastasis and there are also numerous right- sided pulmonary nodules which seemed to be new. She is being admitted for syncopal episode, lactic acidosis, abnormal cardiac enzymes and new pulmonary metastasis. 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 (Chronic) Allergies No Known Allergies Allergy (Verified 01/27/20 12:46) Home Medications: Ambulatory Orders Medication Instructions Recorded Atenolol [Tenormin (beta rogelio)] 100 mg PO DAILY 02/02/14 Multivitamins,Therapeutic 1 tablet PO DAILY 02/02/14 [Multivitamin] Zolpidem Tartrate [Ambien] 5 mg PO QHS PRN PRN 02/02/14 Cholecalciferol (Vitamin D3) 1,000 unit PO DAILY 01/27/20 [Vitamin D3] Docusate Sodium [Colace] 200 mg PO DAILY 01/27/20 Oxycodone HCl 5 mg PO Q6H PRN PRN 01/27/20 Dexamethasone [Decadron] 4 mg PO BID 04/03/20 Levofloxacin 750 mg PO DAILY 04/03/20 Surgical History: total knee arthroplasty, - Psychiatric History: No pertinent psych hx FREEZER PERSON History: No pertinent FREEZER PERSON history Lives: Spouse/ Significant Other Smoking Status: Never smoker Alcohol: None Drugs: None - *Family History Maternal History Items: No pertinent history Paternal History Items: No pertinent history Review of Systems Constitutional: Denies: Anorexia, Chills, Fever, Weakness Eyes: Denies: Blurred vision, Double vision, Drainage, Redness HEENT: Denies: Difficulty Hearing, Ear Pain, Eye Pain, Hearing Changes, Nasal Congestion, Sore Throat Cardiovascular: Reports: Light Headedness, Syncope. Denies: Chest Pain, Chest Pressure, Edema, Heaviness, Palpitations Respiratory: Reports: Shortness of Breath. Denies: Cough, Pleuritic Pain, Sputum production, Wheezing Gastrointestinal: Denies: Abdominal Pain, Constipation, Diarrhea, Nausea, Vomiting Genitourinary: Denies: Dysuria, Frequency, Hematuria Musculoskeletal: Denies: Arm Pain, Back Pain, Foot Pain Skin: Denies: Dryness, Rash Neurological: Denies: Balance problems, Double vision, Change in Speech, Slurred speech, Confusion Psychiatric: Denies: Anxiety, Depression Endocrine: Denies: Change in Body Habitus, Polydipsia, Polyuria VTE Information - Inpt Only VTE Present on Admission: No VTE Mechan Device Prophylaxis: None VTE Pharm Prophylaxis ordered?: Yes Patient Problems: Active and Suspected Problems Lactic acidosis (Acute) Syncope (Acute) Elevated troponin (Acute) - Physical Exam Vitals/I&O's: Vital Signs Temp Pulse Resp BP Pulse Ox 97.5 F L 91 18 122/63 H 97 04/02/20 23:03 04/03/20 00:52 04/03/20 00:52 04/03/20 00:52 04/03/20 00:52 Oxygen Delivery Method Room Air Weight: 173 lb Body Mass Index (BMI) 30.6 General: Alert, Oriented x3, Cooperative, - - Anxious. HEENT: Atraumatic, PERRLA, EOMI, Normocephalic Oral: Moist Mucosa, No Gingival or Mucosal Lesions/ Ulcerations Neck: Supple, No JVD, Negative Carotid Bruits, Trachea Midline, Thyroid Normal Size and Texture Lungs: Clear to auscultation, Normal air movement, No rhonchi, No wheeze, No rales Cardiovascular: Regular rate, Regular Rhythm, Normal S1, Normal S2, PMI Normal Abdomen: Bowel Sounds Present, Soft, Non Tender, Non-Distended, No Hepato- splenomegaly, Obese Extremities: No clubbing, No cyanosis, - - No edema on the left leg. Right leg: Chronic diffuse edema extending up to the right thigh and around the right knee, it is chronic. Skin: No rashes, No breakdown Lymphatic: No Cervical, Supraclavicular, or Inguinal Adenopathy Neurological: Cranial nerves II-XII grossly intact, Motor Exam 5/5 strength throughout Psych/Mental Status: Anxious, Restless, Alert and oriented to time, place, person, mood and affect Microbiology Past 72 Hours 04/02/20 23:30 Mucosa - Nose SARS-CoV-2 Antigen (Rapid) - Final Laboratory Results 04/02/20 23:20: WBC 11.8 H, RBC 4.21, Hgb 13.3, Hct 40.1, MCV 95.2, MCH 31.6, MCHC 33.2, RDW Std Deviation 51.4 H, RDW Coeff of Farnaz 14.6, Plt Count 110 L, MPV 9.8, Neut % (Auto) Not Reportable, Absolute Neuts (auto) 11.1 H, Absolute Lymphs (auto) 0.24 L, Total Counted 100, Neutrophils % (Manual) 89 H, Band Neutrophils % 5, Lymphocytes % (Manual) 2 L, Monocytes % (Manual) 3, Myelocytes % 1 H, Diff Path Review August, Platelet Estimate ADEQUATE, RBC Morphology NORM C+C 04/02/20 23:20: Sodium 133 L, Potassium 4.8, Chloride 100, Carbon Dioxide 22.0, Anion Gap 11, BUN 27 H, Creatinine 1.01, Estim Creat Clear Calc 42.87, Est GFR (MDRD) Af Amer 70, Est GFR (MDRD) Non-Af 58 L, BUN/Creatinine Ratio 26.7 H, Glucose 164 H, Calcium 7.1 L, Total Bilirubin 0.30, AST 52 H, ALT 33, Alkaline Phosphatase 129 H, Troponin I 0.051 H, Total Protein 5.9 L, Albumin 2.4 L, Globulin 3.5, Albumin/Globulin Ratio 0.7 L 04/02/20 23:20: B-Natriuretic Peptide 226.3 H 04/02/20 23:30: Lactic Acid 3.9 H* Clinical Impression(s) from Imaging Studies Chest CTA 04/02/20 23:23 IMPRESSION: 1. No CTA demonstrated large or central pulmonary embolism or arterial dissection. 2. Postobstructive atelectasis with larger left lower lobe pulmonary mass and lingular mass consistent with known neoplasm. 3. Numerous right-sided pulmonary nodules probably representing additional metastasis. 4. Mediastinal and hilar lymphadenopathy. Electronically Signed: Sulema Godoy MD at 1:31 EST , Service support , Current Medications Sodium Chloride () 1,000 mls @ 999 mls/hr IV .Q1H1M ONE Stop: 04/03/20 02:35 Assessment/Plan All Active Problems Lactic acidosis (Acute) Syncope (Acute) Elevated troponin (Acute) This is a 69 years old female patient presented to the emergency room because of syncopal episode, found to have abnormal cardiac enzymes as well as elevated lactic acid and she is being admitted for evaluation and treatment. #1 syncopal episode: Unclear etiology. EKG revealed normal sinus rhythm without evidence of cardiac arrhythmias or acute ischemic changes. Troponin is borderline elevated. She has no focal deficit on physical exam. CTA chest showed no PE or dissection, other findings reviewed. Currently, vital signs are stable, afebrile. She does have minimal leukocytosis but she has been on steroids. Plan: Admit to PCU, cardiac monitoring, serial cardiac enzymes, 2D echocardiogram, CT scan brain without contrast to rule out brain metastasis, check CPK, IV fluids, Tylenol as needed, Zofran as needed, repeat CBC and BMP tomorrow morning, pro time and INR, PT OT evaluation and treatment. #2 lactic acidosis: Without obvious source of infection. CTA chest showed no acute infiltrate or consolidation. She does have minimal leukocytosis but she has been on steroids. She is afebrile. COVID-19 antigen came back negative. Plan: Blood culture, urinalysis, urine culture, IV fluids, repeat lactic acid in 3 hours. At this time, I will hold off starting her on IV antibiotics as there is no obvious source of infection. #3 abnormal cardiac enzymes: Also, BNP is slightly elevated. No evidence of acute CHF. EKG without acute segment changes. She had no cardiac history. Plan: Cardiac monitoring, serial cardiac enzymes, 2D echocardiogram. #4 new lung metastasis: CTA chest showed large left lower lobe lung mass which is chronic and also showed additional right-sided pulmonary nodules which are apparently new. Plan: Oncology consult. #5 history of metastatic gastric cancer: With mets to the lung. Currently, she is on immunotherapy. Plan as above. #6 hypertension: Blood pressure stable, continue atenolol. #7 DVT prophylaxis: Subcu Lovenox. This note was generated with [employer] dictation software. It may contain incorrect words, spelling, and punctuation that were not noted in checking the note before signing. Inpatient E&M: 06305 Init Hosp L3
[2020-04-03] MEDS: 0.9% Normal Saline 1,000 ML 999 ML IV (02:39)
--- NOTE | 2020-04-03 02:49 | ECHOD_ITS ---
Reason For Study: syncope/near syncope Procedure This was a 2D Doppler, Color Flow transthoracic echocardiogram. The study was technically difficult. Exam performed portable in patient room. Left Ventricle Normal LV size. The estimated ejection fraction is 65 %. Diastolic function is indeterminate. No regional wall motion abnormalities noted. Right Ventricle Normal RV size. Normal systolic function. Atria Normal left atrium. Normal right atrium. No doppler evidence for ASD. Mitral Valve There is no mitral valve stenosis. No mitral valve insufficiency. Tricuspid Valve There is no tricuspid stenosis. Trivial tricuspid valve insufficiency. Pulmonary artery systolic pressure is 45 mmHg. Aortic Valve Trisinus/trileaflet aortic valve. Mild diffuse aortic valve thickening. There is no aortic stenosis. No aortic valve insufficiency. Pulmonic Valve There is no pulmonic valvular stenosis. No pulmonic valve insufficiency. Great Vessels Normal aortic root. Pericardium/Pleural No pericardial effusion. MMode/2D Measurements & Calculations LVIDd: 3.3 cm IVSd: 0.97 cm Ao root diam: 2.7 cm LVIDs: 2.4 cm LVPWd: 0.92 cm RVDd: 3.2 cm FS: 27.0 % LAV(MOD-bp): 63.5 ml LA A4 area: 19.6 cm2 LA dimension(2D): 3.2 cm LAV(MOD-bp) Indexed: 35.5 ml/m2 LAV(MOD-sp2): 60.7 ml LAV(MOD-sp4): 60.9 ml RA A4 area: 11.0 cm2 Time Measurements MV dec time: 0.25 sec Doppler Measurements & Calculations MV E max nando: 62.9 cm/sec Lat Peak E' Nando: 4.6 cm/sec Med Peak E' Nando: 6.5 cm/sec MV A max nando: 113.1 cm/sec E/E' lat: 13.5 E/E' med: 9.6 MV E/A: 0.56 Ao V2 max: 154.7 cm/sec LV V1 max: 138.2 cm/sec PA V2 max: 131.2 cm/sec Ao max P.6 mmHg LV V1 max P.6 mmHg TR max nando: 312.9 cm/sec TR max P.7 mmHg Interpretation Summary The estimated ejection fraction is 65 %. Diastolic function is indeterminate. Ordering Physician: Heriberto Neville Referring Physician: Almita Maria Performed By: Sonia Caicedo RDCS, RVT
--- NOTE | 2020-04-03 02:49 | CT_ITS ---
STUDY: CT BRAIN WITHOUT CONTRAST REASON FOR EXAM: Female, 69 years old patient with syncopal episode lasting 7-8 seconds. RADIATION DOSAGE (If Supplied By Facility): CTDIvol = ( 44.99 ) mGy, DLP = ( 779.24 ) mGycm TECHNIQUE: Transaxial CT imaging of the brain was performed without administration of intravenous contrast material. Multiplanar reformations are submitted for interpretation. Individualized dose optimization techniques were used for this CT. COMPARISON: No relevant priors. FINDINGS: Normal soft tissue structures. Normal calvarium. There is mild cerebral atrophy with widening of the extra-axial spaces and ventricular dilatation. There are areas of decreased attenuation within the white matter tracts of the supratentorial brain, consistent with microvascular disease changes. There is small area of encephalomalacia within the left paramedian posterior frontal lobe that probably is secondary to an old infarct. There are small punctate calcifications of the basal ganglia which are seen in the aging brain as a normal variant. Normal brainstem. There is mild cerebellar atrophy. There is no intracranial hemorrhage. There is mild atherosclerotic calcification of the intracranial arteries. Normal visualized paranasal sinuses. CT/Brain/Head without Contrast IMPRESSION: 1. Chronic involutional changes of the brain. 2. No CT evidence of acute intracranial hemorrhage. Electronically Signed: Sulema Godoy MD at 5:09 EST , Service support ,
[2020-04-03 03:30] LABS: CPK Total, Creatine Kinase 97 U/L (26-192)
[2020-04-03 03:36] LABS: Reflex Lactate? Y
[2020-04-03] MEDS: 0.9% Normal Saline 1,000 ML 100 ML IV ×2 (03:45→15:02)
[2020-04-03 04:37] LABS: Lactic Acid 1.8 mmol/L (0.4-1.9)
[2020-04-03 06:29] LABS: Hematocrit 35.5 % (37-47); Hemoglobin 11.8 g/dL (12.0-15.0); Mean Corp Hgb Conc 33.2 g/dL (32-36); Mean Corpuscular Hgb 31.6 pg (27.0-32.0); Mean Corpuscular Volume 95.2 fL (81-99); Mean Platelet Vol. 9.4 fl (6.2-12.0); POSITIVE COUNT YES; POSITIVE DIFFERENTIAL YES; POSITIVE MORPHOLOGY YES; Platelet Count 79 K/mm3 (150-450); RBC Distribution Width CV 14.7 % (11.6-14.6); RBC Distribution Width SD 51.2 fl (35.1-43.9); Red Blood Count 3.73 M/mm3 (4.2-5.4); White Blood Count 9.5 K/mm3 (4.4-11.0)
[2020-04-03 06:33] LABS: Differential Indicated MANUAL DIFF
[2020-04-03 06:40] LABS: International Normalized Ratio 1.3; Prothrombin Time (Protime)PT. 15.3 SECONDS (11.7-14.9)
[2020-04-03 06:55] LABS: Lymphocyte 5 % (19-41); Metamyelocyte 1 % (0-1); Monocyte 2 % (0-10); Neutrophil-Segmented 92 % (47-70); Platelet Estimate ADEQUATE (ADEQ); Red Cell Morphology NORM C+C NORMAL (NORM C&C); Total Cells Counted 100 (MANUAL DIFF)
[2020-04-03 06:56] LABS: Absolute Lymphocyte Count 0.48 X10^3/uL (0.83-4.51); Absolute Neutrophil Count 8.7 X10^3/uL (2.0-7.7); Lymphocyte # 0.48 X10^3/ul (4.0); Neutrophil # 8.74 X10^3/uL (2.7-7.7)
[2020-04-03 07:26] LABS: Anion Gap 10 (5-15); BUN 22 mg/dL (7-18); BUN/Creat Ratio 34.5 RATIO (10-20); Calcium,Total 6.6 mg/dL (8.5-10.1); Chloride 103 mmol/L (98-107); Creatinine, Serum 0.64 mg/dL (0.55-1.02); EST Glomerular Filtration Rate 98 mL/min (>60); Est Glom Filt Rate - Afr Amer 118 mL/min (>60); Glucose 99 mg/dL (74-106); Potassium 3.9 mmol/L (3.5-5.1); Sodium Level 136 mmol/L (136-145)
[2020-04-03] MEDS: dexAMETHasone 4 MG Tablet PO ×2 (12:32→17:27)
[2020-04-03] MEDS: Atenolol 100 MG Tablet PO (12:32)
[2020-04-03] MEDS: levoFLOXacin 750 MG Tablet PO (12:33)
[2020-04-03] MEDS: Enoxaparin 60 MG/0.6 ML Syringe 30 MG SC (12:33)
[2020-04-03] MEDS: oxyCODONE 5 MG Tablet PO ×2 (12:33→19:08)
[2020-04-03 15:14] LABS: Bacteria 0 SEEN /hpf (None Seen); Mucous, Urine 0 SEEN /hpf (<or=2+); Red Blood Cells-Urine 0 SEEN /hpf (0-5)
[2020-04-03 15:23] LABS: Color, Urine Yellow (Yellow); Glucose, Dipstick Normal (Normal); Ketone-Dipstick 5 mg/dl (Negative); Leukocyte Esterase-Dipstick 500 /ul (Negative); Nitrite-Dipstick Negative (Negative); Occult Blood-Urine 10 /ul (Negative); Protein-Dipstick 15 mg/dl (Negative); Urine Bilirubin Dipstick Negative (Negative); Urine Clarity Clear (Clear); Urine Urobilinogen Normal (Normal)
--- NOTE | 2020-04-03 15:29 | PCM.HOSP.N ---
Hospitalist Note Patient was seen and examined today, her was in her room today at the time my examination, he stated that she had a syncopal episode after standing up and trying to walk a few minutes later to the stairs, he stated that she was unconscious for about 6 minutes. He did not see any noticeable seizure activity. I discussed this case by phone with her oncologist (Dr. Fulton) who recommended obtaining a MRI of the brain to rule out metastatic spread. Patient will have an echocardiogram tomorrow to rule out significant valvular heart disease, I told her and her that we may never find a reason for why she had a syncopal episode. Patient currently has stage IV gastric cancer.
[2020-04-03 15:47] LABS: Squamous Epithelial Cells - UA 0-5 SEEN /hpf (5-10); White Blood Cells 10-25 SEEN /hpf (0-5)
[2020-04-04] VITALS (7 sets, daily range): BP systolic 107–160; BP diastolic 58–72; PULSE 53–84; RESP 16–19; TEMP 36.1–36.7; O2SAT 92–96
[2020-04-04] MEDS: 0.9% Normal Saline 1,000 ML 100 ML IV (00:49)
[2020-04-04] MEDS: oxyCODONE 5 MG Tablet PO ×2 (01:59→08:23)
--- NOTE | 2020-04-04 05:55 | MRI_ITS ---
STUDY: MRI BRAIN WITH AND WITHOUT CONTRAST REASON FOR EXAM: Female, 69 years old. H/O CA, ? BRAIN METS, SYNCOPAL EPISODES TECHNIQUE: Standardized multiplanar fat and water weighted pulse sequences were obtained. IV 15 CC DOTAREM was administered for the contrast portion of the examination. COMPARISON: None. 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 There is vasogenic edema in the adjacent part of the left frontal lobe. Normal size of the ventricles for the patient''s age. Normal bilateral basal ganglia. Normal thalami. There is no extra-axial fluid accumulation. Normal flow voids within the major intracranial circulation suggesting patency by spin echo criteria. Normal venous enhancement. Normal sella turcica, pituitary gland, infundibular stalk, optic chiasm and hypothalamus. Normal tectal plate and pineal gland. Normal midbrain, italo and medulla. Normal cerebellum. Normal basal cisterns. Normal bilateral temporal bones. Normal bilateral internal auditory canals. No demonstrated orbital abnormality, within the constraints of a routine brain study. Normal visualized paranasal sinuses. Normal calvarium and skull base. Normal visualized soft tissue structures. Normal visualized upper cervical spine. 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 Electronically Signed: Vadim Martinez, at 13:35 EST Tel , Service support ,
[2020-04-04] MEDS: levoFLOXacin 750 MG Tablet PO (06:23)
[2020-04-04] MEDS: dexAMETHasone 4 MG Tablet PO (08:22)
[2020-04-04] MEDS: Enoxaparin 60 MG/0.6 ML Syringe 30 MG SC (08:23)
[2020-04-04] MEDS: Atenolol 100 MG Tablet PO (08:23)
--- NOTE | 2020-04-04 11:01 | DCINST_ITS ---
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 (Chronic) You will use the following diet at home:: No restrictions Your food should be the consistency of: Regular Your liquids should be the consistency of: Regular/Thin Discharge Activity: Return to Normal Activity Allergies/Adverse Reactions: Allergies No Known Allergies Allergy (Verified 01/27/20 12:46) Medications to take at Discharge Atenolol [Tenormin (beta rogelio)] 100 mg PO DAILY 02/02/14 Multivitamins,Therapeutic [Multivitamin] 1 tablet PO DAILY 02/02/14 Zolpidem Tartrate [Ambien] 5 mg PO QHS PRN PRN 02/02/14 Cholecalciferol (Vitamin D3) [Vitamin D3] 1,000 unit PO DAILY 01/27/20 Docusate Sodium [Colace] 200 mg PO DAILY 01/27/20 Oxycodone HCl 5 mg PO Q6H PRN PRN 01/27/20 Dexamethasone [Decadron] 4 mg PO BID 04/03/20 Primary Care Physician: Almita Maria MD [Primary Care Provider] - Please follow up with your Primary Care Physician in: 1-2 weeks Test Results: Test results from this visit will be discussed in further detail at your follow- up appointment, if applicable. Please Follow Up With: Oncology When: As previously directed
[2020-04-04 12:13] LABS: Pathologist Review Reviewed
--- NOTE | 2020-04-04 12:21 | NURSING ---
Addendum entered and electronically signed by Terri Recio 04/04/20 12:51: S/w Valorie from [facility] and [facility] can accept patient for start of care either Saturday or Saturday. RICK Aguilar Original Note: RN CM Assessment Introduced role of RN KADIE to patient and her Lex Hernandez at bedside.? Patient is alert, oriented and able?to participate in RN CM Assessment. ?Care providers, pharmacy, and demographics verified. Admit Dx: Syncope, Abnl cardiac enzymes, lactic acidosis Re-Admit: No Barriers/Issues: Patient was evaluated by PT/OT and both recommending additional therapy, PT at shelter facility level. Discussed this with both patient and her and both wish for patient to go home with [facility]. Patient provided in network list of [facility] and preference is [facility]. 1220- called Shelli at [facility] and left a VM and to return call to this keno writer. Patient currently wearing oxygen- was not prior, nursing to oxygen test patient on RA to see if home oxygen is needed, if needed preference is [facility]. is present with patient all the time except when grocery shopping. Advised that patient not be left alone while improving on strength and healing. PCP: Almita Maria Specialists: OncSulma Fulton Preferred Pharmacy: [facility] Insurance: [facility] Rx Benefit:?Yes ?LNOK: Lex Hernandez LW/HPOA: [facility] has completed and will fax to unit to place copy on file. HPOA- Lex Hernandez. Living Arrangements:? Lives with in a 2SH, Bedroom on [facility]. 1 step to enter home through garage with hand rails. plans on having a stair lift installed. Plan for patient to stay on first floor until she gets better. having additional RTS installed and grab bars near toilet. ADL?s: Ambulates with cane and assist. Uses 2WW and plans to use the walker more. assists with dressing and meals, otherwise patient is independent with dressing/medications. Transportation: [place] and will upon DC DME: two 2WW, single point cane, Pulse ox, RTS. HHC: None. Preference [facility]. SNF: None Goal: Home with HHC. Denies any additional needs, issues or concerns. Nurse to RA oxygen test- preference [employer] if oxygen is needed. DC PLAN: Home with HHC- PT/OT, possible home O2. Edmond Recio RNCM
[2020-04-04] MEDS: 0.9% Saline Lock 10 ML Syringe IV (12:22)
[2020-04-04 12:26] LABS: Pathologist Review Reviewed
[2020-04-04] MEDS: Albuterol 2.5 MG/3 ML VIAL.NEB. INHALATION (13:06)
--- NOTE | 2020-04-04 14:17 | PCM.DC ---
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 (Chronic) You will use the following diet at home:: No restrictions Your food should be the consistency of: Regular Your liquids should be the consistency of: Regular/Thin Discharge Activity: Return to Normal Activity, May Not Drive Weight Bearing Status: Full weight bearing Allergies/Adverse Reactions: Allergies No Known Allergies Allergy (Verified 01/27/20 12:46) Medications to take at Discharge Atenolol [Tenormin (beta rogelio)] 100 mg PO DAILY 02/02/14 Multivitamins,Therapeutic [Multivitamin] 1 tablet PO DAILY 02/02/14 Zolpidem Tartrate [Ambien] 5 mg PO QHS PRN PRN 02/02/14 Cholecalciferol (Vitamin D3) [Vitamin D3] 1,000 unit PO DAILY 01/27/20 Docusate Sodium [Colace] 200 mg PO DAILY 01/27/20 Oxycodone HCl 5 mg PO Q6H PRN PRN 01/27/20 Dexamethasone [Decadron] 4 mg PO TID #90 tab 04/04/20 Famotidine [Pepcid] 40 mg PO DAILY #30 tab 04/04/20 Levetiracetam [Keppra] 500 mg PO BID #60 tab 04/04/20 levoFLOXacin tablet [Levaquin tablet] 750 mg PO DAILY@0600 tablet 04/04/20 The following prescriptions were given: Dexamethasone [Decadron] 4 mg PO TID #90 tab Transmission Status: Pending to [facility] Levetiracetam [Keppra] 500 mg PO BID #60 tab Transmission Status: Pending to [facility] Famotidine [Pepcid] 40 mg PO DAILY #30 tab Transmission Status: Pending to [facility] Primary Care Physician: Almita Maria MD [Primary Care Provider] - Please follow up with your Primary Care Physician in: 1-2 weeks Test Results: Test results from this visit will be discussed in further detail at your follow-up appointment, if applicable. Please Follow Up With: Oncology When: call Dr. Coelho to arrange for treatment (radiotherapy)
--- NOTE | 2020-04-04 14:53 | PCM.DC.SUM ---
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 CT/CTA Chest W/WO Contrast IMPRESSION: 1. No CTA demonstrated large or central pulmonary embolism or arterial dissection. 2. Postobstructive atelectasis with larger left lower lobe pulmonary mass and lingular mass consistent with known neoplasm. 3. Numerous right-sided pulmonary nodules probably representing additional metastasis. 4. Mediastinal and hilar lymphadenopathy. CT/Brain/Head without Contrast IMPRESSION: 1. Chronic involutional changes of the brain. 2. No CT evidence of acute intracranial hemorrhage. 2D TTE: Interpretation Summary The estimated ejection fraction is 65 %. Diastolic function is indeterminate. Operations: None Procedures: 2-D Echocardiogram Summary of Care Provided: Hospital Course: The patient is a 69 year old F with pmhx notable for stage 4 gastric cancer who presented to the ER with syncope. She felt dizzy while walking up a flight of stairs and then collapsed for an unclear amount of time possibly 7-8 mins per EMS. No explicit seizure activity was noted. She had been undergoing immunotherapy with Dr. Fulton, most recent tx about 9 days prior. She was simon to the ER and found to have indeterminate trop, lactic acidsosis, negative UA, mild leukocytosis. CTA chest was negative for acute change. CT brain showed chronic changes. She was admitted to the PCU on tele. She had no remarkable events on tele. She had an MRI brain showing a meningeal mass suspected metastatic disease. She was placed on keppra. Dr. Fulton was contacted to arrange for follow up care -- planning for Radiotherapy with Dr. Coelho. Decadron increased to 4 tid. Echo was obtained - unremarkable. She was discharged home in stable condition with outpatient follow up with Dr. Fulton as directed and with PCP in 1-2 weeks. This patient was seen by Raúl Torres PA-C under the supervision of Dr. Del Cid. [] Patient Problems: Active and Suspected Problems Lactic acidosis (Acute) Syncope (Acute) Elevated troponin (Acute) - Physical Exam Vitals/I&O's: Vital Signs Temp Pulse Resp BP Pulse Ox 97.6 F L 68 16 107/58 L 96 04/04/20 08:26 04/04/20 13:06 04/04/20 13:06 04/04/20 08:26 04/04/20 13:58 Oxygen Flow Rate (L/min) [ 0 AMBULATING on Room Air] Oxygen Flow Rate (L/min) [At 0 REST on Room Air] Oxygen Flow Rate (L/min) 3 Oxygen Delivery Method Room Air Weight: 164 lb 14.492 oz Body Mass Index (BMI) 30.1 Intake and Output for Last 24 Hours 04/02/20 04/03/20 04/04/20 23:59 23:59 23:59 Intake Total 2840 / 3060 2488.33 / 2488.33 Output Total 250 / 250 250 / 250 Balance 2590 / 2810 2238.33 / 2238.33 General: Alert, Oriented x3, Cooperative HEENT: Atraumatic, PERRLA, EOMI, Normocephalic Neck: Supple, No JVD, Negative Carotid Bruits Lungs: Clear to auscultation, Normal air movement Cardiovascular: Regular rate, No murmurs Abdomen: Bowel Sounds Present, Soft, Non Tender Extremities: No edema, Capillary Refill Less than 3 Seconds Skin: No rashes, No breakdown Musculoskeletal: No Tenderness to Palpation of Joints or Extremities Neurological: Cranial nerves II-XII grossly intact Psych/Mental Status: Normal Affect, Appropriate, Alert and oriented to time, place, person, mood and affect Microbiology Past 72 Hours 04/03/20 14:57 Urine, Clean Catch Urine Culture - Preliminary Presumptive E. coli 04/02/20 23:30 Mucosa - Nose SARS-CoV-2 Antigen (Rapid) - Final Laboratory Results 12/26/20 23:20: Diff Path Review Reviewed 04/03/20 06:15: Diff Path Review Reviewed 04/03/20 14:57: Urine Color Yellow, Urine Clarity Clear, Urine pH 5.0, Ur Specific [place] 1.020, Urine Protein 15 H, Urine Glucose (UA) Normal, Urine Ketones 5 H, Urine Occult Blood 10 H, Urine Nitrite Negative, Urine Bilirubin Negative, Urine Urobilinogen Normal, Ur Leukocyte Esterase 500 H, Urine RBC 0 SEEN, Urine WBC 10-25 SEEN, Ur Squamous Epith Cells 0-5 SEEN, Urine Bacteria 0 SEEN, Urine Mucus 0 SEEN Current Medications Acetaminophen (Acetaminophen 325 Mg Tablet) 650 mg PO Q6H PRN PRN PRN Reason: Pain Score 1-10/Temp > 100.7 F Atenolol (Atenolol 100 Mg Tablet) 100 mg PO DAILY [facility] Last Admin: 04/04/20 08:23 Dose: 100 mg Documented by: Dexamethasone (Dexamethasone 4 Mg Tablet) 4 mg PO BIDCM [facility] Last Admin: 04/04/20 08:22 Dose: 4 mg Documented by: Enoxaparin Sodium (Enoxaparin 60 Mg/0.6 Ml Syringe) 30 mg SC DAILY [facility] Last Admin: 04/04/20 08:23 Dose: 30 mg Documented by: Heparin Sodium (Beef Lung) (Heparin Pf Lock 10 Units/Ml 50 Units/5 Ml Syringe) 50 units IV UD PRN PRN Reason: Port-a-Cath (VAD)Heparin Flush Last Admin: 04/04/20 12:22 Dose: 50 units Documented by: Sodium Chloride () 1,000 mls @ 100 mls/hr IV .Q10H [facility] Last Infusion: 04/04/20 11:05 Dose: Infused Documented by: Sodium Chloride () 250 mls @ 15 mls/hr IV .[id number] PRN PRN Reason: Saline Flush Sodium Chloride () 250 mls @ 15 mls/hr IV .[id number] PRN PRN Reason: Additional IVPB Infusion Levofloxacin (Levofloxacin 750 Mg Tablet) 750 mg PO DAILY@0600 [facility] Last Admin: 04/04/20 06:23 Dose: 750 mg Documented by: Nutritional Formula (Lactose Free) (Ensure Enlive 120 Ml Liquid) 120 ml PO 4X/DAY [facility] Last Admin: 04/04/20 14:02 Dose: Not Given Documented by: Ondansetron HCl (Ondansetron 4 Mg/2 Ml Vial) 4 mg IV Q8H PRN PRN PRN Reason: NAUSEA/VOMITING Oxycodone HCl (Oxycodone 5 Mg Tablet) 5 mg PO Q6H PRN PRN PRN Reason: Pain Score 1-10 Last Admin: 04/04/20 08:23 Dose: 5 mg Documented by: Senna/Docusate Sodium (Senna/Docusate Sodium 1 Tablet) 2 tablet PO BID PRN PRN PRN Reason: Constipation Sodium Chloride (0.9% Saline Lock 10 Ml Syringe) 10 - 40 ml IV UD PRN PRN Reason: Port-a-Cath (VAD) Flush Last Admin: 04/04/20 12:22 Dose: 10 ml Documented by: Sodium Chloride (0.9 % Nacl (Sterile) Posiflush 10 Ml) 10 - 40 ml IV UD PRN PRN Reason: Port access or dressing change Zolpidem Tartrate (Zolpidem Tartrate 5 Mg Tablet) 5 mg PO QHS PRN PRN PRN Reason: INSOMNIA Discharge Diet: No Restrictions Discharge Activity: Return to Normal Activity, May Not Drive Weight Bearing Status: Full weight bearing Home Medications: Medications to take at Discharge Atenolol [Tenormin (beta rogelio)] 100 mg PO DAILY 02/02/14 Multivitamins,Therapeutic [Multivitamin] 1 tablet PO DAILY 02/02/14 Zolpidem Tartrate [Ambien] 5 mg PO QHS PRN PRN 02/02/14 Cholecalciferol (Vitamin D3) [Vitamin D3] 1,000 unit PO DAILY 01/27/20 Docusate Sodium [Colace] 200 mg PO DAILY 01/27/20 Oxycodone HCl 5 mg PO Q6H PRN PRN 01/27/20 Dexamethasone [Decadron] 4 mg PO TID #90 tab 04/04/20 Famotidine [Pepcid] 40 mg PO DAILY #30 tab 04/04/20 Levetiracetam [Keppra] 500 mg PO BID #60 tab 04/04/20 levoFLOXacin tablet [Levaquin tablet] 750 mg PO DAILY@0600 tab 04/04/20 Following Prescriptions Were Given to Patient: Dexamethasone [Decadron] 4 mg PO TID #90 tab Transmission Status: Received by KAYLEE LEONARD RD Levetiracetam [Keppra] 500 mg PO BID #60 tab Transmission Status: Received by KAYLEE LEONARD RD Famotidine [Pepcid] 40 mg PO DAILY #30 tab Transmission Status: Received by KAYLEE LEIVA HORACIO ZAZUETA Primary Care Physician: Almita Maria MD [Primary Care Provider] - Please follow up with your Primary Care Physician in: 1-2 weeks Please Follow Up With: Oncology When: call Dr. Coelho to arrange for treatment (radiotherapy) Disposition: Home Minutes spent on discharge:: 35 Patient Condition:: Stable Medical Necessity - Tobacco Use Smoking Status: Never smoker Meaningful Use Info Meaningful Use Diagnoses (Choose all that apply): None applicable
[2020-04-04] MEDS: levETIRAcetam 1,000 MG Tablet 1000 MG PO (15:03)
--- NOTE | 2020-04-05 11:25 | CASEMGMT ---
CATE ENGLE Discharge Follow-up Call: NEGROLeanna: Izabela Strata: 3 Discharge Date: 04/04/2020 Call Date: 04/05/2020 Call time: 1125 Discharge Dx: Meningeal Mass 2/2 metastatic gastric cancer Call placed to pt's home phone. Pt answered and states she is doing well since discharge. States the home physical therapist was to her home this AM. Pt has not made her follow-up appointments with Dr. Coelho but his office has contacted her and are awaiting additional information and then will schedule her appointment for her. She has not been in contact with Dr. Maria and asked if this was necessary. Encouraged pt to contact Dr. Maria's office and to request a phone appointment as pt did not want to have to go out to an additional appointment. Pt denies any questions regarding her meds or other discharge instructions. Alfonso Hewitt RN CM
== END 2020-04-04 15:11 | disposition home or self-care (01) | DRG 312 ==
LOC: ED 04-03 01:39 → ICU 04-03 02:24 → PCU 04-03 10:42
PROVIDERS: Admitting Provider Hospitalist; Emergency Provider Emergency Medicine; PCP Family Medicine; Visit Provider Internal Medicine
DX: R55 Syncope and collapse (principal); G93.6 Cerebral edema; C79.32 Secondary malignant neoplasm of cerebral meninges; E87.2 Acidosis; C16.9 Malignant neoplasm of stomach, unspecified; C78.01 Secondary malignant neoplasm of right lung; C78.02 Secondary malignant neoplasm of left lung; R77.8 Other specified abnormalities of plasma proteins; R74.8 Abnormal levels of other serum enzymes; I27.20 Pulmonary hypertension, unspecified; I10 Essential (primary) hypertension; R60.0 Localized edema; M19.90 Unspecified osteoarthritis, unspecified site; Z79.899 Other long term (current) drug therapy; Z96.651 Presence of right artificial knee joint
CPT/HCPCS: 70450; 70553; 71275; 80048; 80053; 81001; 82550; 83605; 83880; 84484; 85025; 85610; 87040; 87086; 87088; 87186; 87426; 93005; 93306; 94640; 97110; 97163; 97165; 97535; 99251; 99285; A9575; J7030; Q9967; A4216; G0463